=== PATIENT | male | born 2000 | race Caucasian/White ===

== ENCOUNTER 2023-05-09 09:38 | Emergency (ER) | payer SELFPAY ==
[2023-05-09 09:46] VITALS: BP 130/79; PULSE 126; RESP 18; TEMP 37.3; O2SAT 100; BMI 33.9
[2023-05-09 09:56] VITALS: O2SAT 100
--- NOTE | 2023-05-09 09:58 | ECG_ITS ---
[facility] Test Date: 2023-05-09 Pat Name: Pietro Walden Department: Room: - Gender: Male Reset Merchandiser: : 2000 Requested By: [id number] Order Number: [id number] Reading MD: SHERICE [place] Measurements Intervals [place] Rate: 111 P: 46 MO: 142 QRS: 141 QRSD: 86 T: 30 QT: 318 QTc: 384 Interpretive Statements 1120 Sinus tachycardia 2420 RSR (QR) in lead V1/V2, consistent with right ventricular conduction delay 2730 Left posterior fascicular block 9150 abnormal ECG No previous ECG available for comparison Electronically Signed On 05-10-2023 7:00:01 EDT by SHERICE [place]
--- NOTE | 2023-05-09 09:58 | XR_ITS ---
[facility] [id number] Patient Name: BOGDAN NARANJO MRN: [id number] date: 2000 Sex: M Assigned Patient Location: ER Current Patient Location: ER Accession/Order Number: [id number] Exam Date: 05/09/2023 10:45 Report Date: 05/09/2023 11:06 At the request of: LESLEE TRAORE Procedure: XR cervical spine 2-3V EXAMINATION: XR cervical spine 2-3V HISTORY: paresthesia ; bilateral arm tingling for 2 days COMPARISON: No relevant comparison available. FINDINGS: BONES: No significant spondylosis, scoliosis, fracture, or visible bony lesion. DISC SPACES: Mild narrowing C4-5. PARASPINOUS: Negative. No paraspinous abnormality is seen. OTHER: Negative. IMPRESSION: 1. C4-5 minimal disc space narrowing, likely early degenerative changes. 2. No appreciable acute abnormality. Electronically authenticated by: MANUEL ANDREWS Date: 05/09/2023 11:06
--- NOTE | 2023-05-09 09:59 | ED.EXTPRO1 ---
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 He's had this intermittently for two days. No injury or unusual activity. No headache or neck pain. His legs are unaffected. He was worried he might be having a stroke or heart attack. He is deaf but excellent interpretation is provided by his mother. Related Data Allergies Allergy/AdvReac Type Severity Reaction Status Date / Time No Known Drug Allergies Allergy Verified 05/09/23 09:44 Review of Systems ROS Narrative A ten point review of systems is negative except as noted above. Exam Narrative Exam Narrative: Nurses note and vital signs reviewed and patient is not hypoxic. General: The patient appears well and in no apparent distress. Patient is resting comfortably on cart. Skin: Warm, dry, no pallor noted. There is no rash noted. Head: Normocephalic, atraumatic Eye: Normal conjunctiva, no drainage Ears, Nose, Mouth, and Throat: oral mucosa is moist. Nares patent. Cardiovascular: Regular Rate and Rhythm Respiratory: Patient is in no distress, no accessory muscle use, lungs are clear to auscultation, no wheezing, rales or rhonchi Back: non-tender in the cervical spine and the rest of his back as well GI: after nontender Musculoskeletal: The patient has no evidence of calf tenderness, no pitting edema, symmetrical pulses noted bilaterally Neurological: week and alert. Upper and lower extremity strength five out five and symmetric in all muscle groups Psychiatric: Cooperative Constitutional Vital Signs, click to edit/add: Last Vital Signs Temp 99.1 F 05/09/23 09:46 Pulse 126 H 05/09/23 09:46 Resp 18 05/09/23 09:46 BP 130/79 H 05/09/23 09:46 Pulse Ox 100 05/09/23 09:56 O2 Del Method Room Air 05/09/23 09:56 Course Vital Signs Vital signs: Vital Signs Temperature 99.1 F 05/09/23 09:46 Pulse Rate 126 H 05/09/23 09:46 Respiratory Rate 18 05/09/23 09:46 Blood Pressure 130/79 H 05/09/23 09:46 Pulse Oximetry 100 05/09/23 09:46 Oxygen Delivery Method Room Air 05/09/23 09:46 Temperature 99.1 F 05/09/23 09:46 Pulse Rate 126 H 05/09/23 09:46 Respiratory Rate 18 05/09/23 09:46 Blood Pressure 130/79 H 05/09/23 09:46 Pulse Oximetry 100 05/09/23 09:56 Oxygen Delivery Method Room Air 05/09/23 09:56 MDM - Extremity (Nontraumatic) MDM Narrative Medical decision making narrative: Blood work is normal as is his EKG. Cervical spine x-rays show degenerative changes. Findings are discussed with his mother and he'll follow-up with his PCP. Lab Data Labs: Lab Results 05/09/23 Range/Units 10:20 WBC 8.3 (4.0-11.0) 10^3/uL RBC 5.96 (4.70-6.10) 10^6/uL Hgb 16.7 (14.0-18.0) g/dL Hct 49.4 (42.0-54.0) % MCV 82.9 (80.0-94.0) fL MCH 28.0 (25.9-34.0) pg MCHC 33.8 (29.9-35.2) g/dL RDW 12.2 (11.0-15.0) % Plt Count 170 (150-450) 10^3/uL MPV 10.1 (9.5-13.5) fL Neut % (Auto) 70.3 (43.0-75.0) % Lymph % (Auto) 20.2 L (20.5-60.0) % [place] % (Auto) 7.4 (1.7-12.0) % Eos % (Auto) 1.1 (0.9-7.0) % Baso % (Auto) 0.4 (0.2-2.0) % Neut # (Auto) 5.8 (1.4-6.5) 10^3/uL Lymph # (Auto) 1.7 (1.2-3.8) 10^3/uL [place] # (Auto) 0.6 (0.3-0.8) 10^3/uL Eos # (Auto) 0.1 (0.0-0.7) 10^3/uL Baso # (Auto) 0.0 (0.0-0.1) 10^3/uL Abs Immat Gran (auto) 0.05 H (0.00-0.03) 10^3/uL Imm/Tot Granulo (auto) 0.6 H (0.0-0.5) % Sodium 137 (136-145) mmol/L Potassium 4.3 (3.5-5.1) mmol/L Chloride 98 (98-107) mmol/L Carbon Dioxide 30.0 (21.0-32.0) mmol/L Anion Gap 13.3 BUN 10.0 (7.0-18.0) mg/dL Creatinine 1.04 (0.70-1.30) mg/dL Est GFR ( Amer) >60 (>=60) Est GFR (Non-Af Amer) >60 (>=60) BUN/Creatinine Ratio 9.6 Glucose 101 (74-106) mg/dL Calcium 9.4 (8.5-10.1) mg/dL ECG Data Attestation ECG: I personally reviewed and interpreted this ECG as follows: (EKG on my interpretation shows sinus rhythm with a rate of 111) Discharge Plan Discharge Chief Complaint: Extremity Problem, Nontraumatic Clinical Impression: Paresthesia Patient Disposition: Home, Self-Care Time of Disposition Decision: 11:14 Condition: Good Mode of Transportation: Private Vehicle Instructions: Paresthesia (ED) Stand Alone Forms: Portal Instructions Referrals: Physician,Non-Staff, MD [Primary Care Provider] - 1 week
[2023-05-09 10:47] LABS: Basophils Percent Auto 0.4 % (0.2-2.0); Eosinophils Absolute Auto 0.1 10^3/uL (0.0-0.7); Eosinophils Percent Auto 1.1 % (0.9-7.0); Hematocrit 49.4 % (42.0-54.0); Hemoglobin 16.7 g/dL (14.0-18.0); Immature Granulocytes Abs Auto 0.05 10^3/uL (0.00-0.03); Immature Granulocytes Pct Auto 0.6 % (0.0-0.5); Lymphocytes Absolute Auto 1.7 10^3/uL (1.2-3.8); Lymphocytes Percent Auto 20.2 % (20.5-60.0); Mean Corpuscular HGB Conc 33.8 g/dL (29.9-35.2); Mean Corpuscular Volume 82.9 fL (80.0-94.0); Mean Platelet Volume 10.1 fL (9.5-13.5); Monocytes Absolute Auto 0.6 10^3/uL (0.3-0.8); Monocytes Percent Auto 7.4 % (1.7-12.0); Neutrophils Absolute Auto 5.8 10^3/uL (1.4-6.5); Neutrophils Percent Auto 70.3 % (43.0-75.0); Platelet Count 170 10^3/uL (150-450); Red Blood Count 5.96 10^6/uL (4.70-6.10); Red Cell Distribution Width 12.2 % (11.0-15.0); White Blood Count 8.3 10^3/uL (4.0-11.0)
[2023-05-09 10:57] LABS: Anion Gap 13.3; BUN Creatinine Ratio 9.6; Calcium 9.4 mg/dL (8.5-10.1); Chloride 98 mmol/L (98-107); Estimated GFR (African America >60 (>=60); Estimated GFR (Non-African Ame >60 (>=60); Glucose 101 mg/dL (74-106); Potassium 4.3 mmol/L (3.5-5.1); Sodium 137 mmol/L (136-145)
== END 2023-05-09 11:19 | disposition home or self-care (01) ==
PROVIDERS: Emergency Provider Emergency Medicine
DX: R20.2 Paresthesia of skin (principal)
CPT/HCPCS: 36415; 72040; 80048; 85025; 93005; 99285